=== PATIENT | male | born 1940 | race Two or more races ===

== ENCOUNTER 2021-02-18 01:35 | Emergency (ER) | payer BC ==
[~2021-02-18] VITALS: Ht 180.3 cm; Wt 80.0 kg
[2021-02-18] MEDS ORDERED: ONDANSETRON HCL 4MG/2ML INJ IV STA (02:10)
[2021-02-18] MEDS ORDERED: MORPHINE SULFATE 4 MG/ML CPJ (NOT FOR IM USE) IV STA (02:10)
[2021-02-18 02:29] LABS: BASOPHILS % 0.4 % (0.0-2.0); EOSINOPHILS % 1.8 % (0.0-5.0); HEMATOCRIT. 43.4 % (42.0-52.0); HEMOGLOBIN. 14.3 g/dL (14.0-18.0); MEAN CORPUSCULAR HEMOGLOBIN 29.6 pg (28.0-32.0); MEAN PLATELET VOLUME 9.7 fl (7.4-10.4); MONOCYTES % 6.5 % (2.0-8.0); NEUTROPHILS % 68.3 % (40.0-76.0); PLATELET 143 x1000/uL (130-400); RED BLOOD CELL COUNT 4.83 mill/uL (4.7-6.1); RED CELL DISTRIBUTION WIDTH 14.2 % (11.6-14.6)
[2021-02-18 02:34] LABS: CHLORIDE 112 mEq/L (98-107)
[2021-02-18] MEDS ORDERED: MORPHINE SULFATE 4 MG/ML CPJ (NOT FOR IM USE) IV SCH (04:15)
[2021-02-18] MEDS ORDERED: IOHEXOL-350 100 ML BOTTLE ONE (05:11)
[2021-02-18] MEDS ORDERED: LIDO700A30 TP (05:26)
[2021-02-18] MEDS ORDERED: MORPHINE SULFATE 4 MG/ML CPJ (NOT FOR IM USE) IV ONE (05:30)
[2021-02-18 07:00] VITALS: BP 125/65
== END 2021-02-18 07:21 | disposition home or self-care (01) ==
LOC: ER 01:35
DX: I71.2 Thoracic aortic aneurysm, without rupture (principal); I10 Essential (primary) hypertension; J45.909 Unspecified asthma, uncomplicated
CPT/HCPCS: 36415; 71275; 74174; 74176; 80053; 83690; 85025; 93005; 96374; 96375; 96376; 99285; J2270; J2405; Q9967